=== PATIENT | female | born 1945 | race Caucasian/White ===

== ENCOUNTER → 2016-10-30 | Outpatient (CLI) | payer OTHER ==
[~2016-10-30] MED LIST: ALBU8.5H3 INH; AMLO5TAB2 PO; ASPI-496 PO; ATOR20TA9 PO; CALC1CAP8 PO; CETI10CA PO; CLON0.25 PO; CYCL5TAB PO; GABA300C10 PO; HYDR-3307 PO; LAMO200T49 PO; LEVO100T5 PO; LISI5TAB7 PO; MULTIMINERAL PO; ONDA4TAB13 SL; PRED10TA PO
[2016-10-30 15:15] LABS: ASPARTATE AMINO TRANSFERASE 20 U/L (15-37); BLOOD UREA NITROGEN 16 mg/dL (7-18)
== END | disposition home or self-care (01) ==
LOC: STAR 13:50
PROVIDERS: ATTEND Neurological Surgery
DX: Z01.818 Encounter for other preprocedural examination (principal); R94.31 Abnormal electrocardiogram [ECG] [EKG]; M48.02 Spinal stenosis, cervical region; R79.1 Abnormal coagulation profile
CPT/HCPCS: 36415; 71020; 80053; 85025; 85610; 85730; 93005